=== PATIENT | female | born 1945 | race Caucasian/White ===

== ENCOUNTER → 2021-04-21 | Outpatient (CLI) | payer BC, MEDICARE | LOC: EMI 13:58 | DX: M79.672 Pain in left foot (principal) | CPT/HCPCS: 73718 ==

== ENCOUNTER 2021-07-21 09:36 | Emergency (ER) | payer BC, MEDICARE ==
[~2021-07-21] VITALS: Ht 162.6 cm; Wt 72.6 kg
== END 2021-07-21 11:19 | disposition home or self-care (01) ==
LOC: ER1 09:36
DX: U07.1 COVID-19 (principal); Z23 Encounter for immunization; J44.9 Chronic obstructive pulmonary disease, unspecified
CPT/HCPCS: 71045; 99283; M0243